=== PATIENT | female | born 1995 | race Two or more races ===

== ENCOUNTER 2021-12-15 15:06 | Inpatient (IN) | payer OTHER ==
[~2021-12-15] VITALS: Ht 165.1 cm; Wt 104.3 kg
[2021-12-15 16:07] LABS: BILIRUBIN NEGATIVE (NEGATIVE); BLOOD 1+ Ery/uL (NEGATIVE); CLARITY CLEAR (CLEAR); COLOR YELLOW (YELLOW); GLUCOSE (U) NORMAL (NORMAL); HCT 38.5 % (37.0-47.0); HGB 12.4 g/dl (12.5-16.0); LEUKOCYTES 1+ Leu/uL (NEGATIVE); MCHC 32.2 g/dL (32.0-36.0); MCV 83.9 fL (78.0-100.0); MPV 10.7 fL (6.0-9.5); NITRITE NEGATIVE (NEGATIVE); PROTEIN NEGATIVE (NEGATIVE); RBC 4.59 M/uL (4.20-5.40); RDW 14.9 % (11.5-14.0); SPECIFIC GRAVITY 1.025 (1.001-1.030); UROBILINOGEN 0.2 mg/dL (0.2-1.0); WBC 11.9 K/uL (4.0-10.5)
[2021-12-15 16:11] LABS: BACTERIA TRACE; MUCOUS TRACE; SQUAMOUS EPITHELIAL CELLS 20-50; URINARY RBC RARE
[2021-12-17 06:17] LABS: HCT 37.8 % (37.0-47.0); HGB 11.8 g/dl (12.5-16.0); MCH 27.1 pg (25.0-31.0); MCHC 31.2 g/dL (32.0-36.0); MCV 86.9 fL (78.0-100.0); MPV 10.6 fL (6.0-9.5); RBC 4.35 M/uL (4.20-5.40); RDW 14.9 % (11.5-14.0); WBC 13.6 K/uL (4.0-10.5)
[2021-12-18] MEDS ORDERED: IBUPROFEN800 M1 PO (09:51)
[2021-12-18] MEDS ORDERED: PRENATAL FORMU1 EACH PO (09:51)
[2021-12-18] MEDS ORDERED: COLACE100 MG PO (09:51)
== END 2021-12-18 11:41 | disposition home or self-care (01) | DRG 807 ==
LOC: FOB 15:06
PROVIDERS: ADMIT Specialist
PROC: 10E0XZZ Delivery of Products of Conception, External Approach (ICD-10-PCS; principal; 2021-12-16)
PROC: 0UQMXZZ Repair Vulva, External Approach (ICD-10-PCS; 2021-12-16)
DX: O34.33 Maternal care for cervical incompetence, third trimester (principal); Z37.0 Single live birth; Z3A.38 38 weeks gestation of pregnancy; O99.214 Obesity complicating childbirth; E66.01 Morbid (severe) obesity due to excess calories; O99.824 Streptococcus B carrier state complicating childbirth; O36.63X0 Maternal care for excessive fetal growth, third trimester, not applicable or unspecified; O70.0 First degree perineal laceration during delivery; Z86.16 Personal history of COVID-19
CPT/HCPCS: 36415; 81001; 86850; 86900; 86901; 87070; J0595; J2405; J7120